=== PATIENT | female | born 1995 | race Caucasian/White ===

== ENCOUNTER 2017-06-11 16:52 | Emergency (ER) | payer OTHER ==
[~2017-06-11] VITALS: Ht 157.5 cm; Wt 78.0 kg
[2017-06-11 17:06] VITALS: Ht 157.5 cm; Wt 78.0 kg
[2017-06-11 18:04] LABS: CARBON DIOXIDE 26.7 mmol/L (21-32); CHLORIDE SERUM 106 mmol/L (98-107); CREATININE SERUM 0.6 mg/dL (0.6-1.0); GFR1 > 60 mL/min; GLUCOSE SERUM 86 mg/dL (74-106); POTASSIUM SERUM 3.9 mmol/L (3.5-5.1); SODIUM SERUM 138 mmol/L (136-145)
[2017-06-11 18:07] LABS: BASOPHIL % 0.3 % (0-2); PLATELET COUNT 322 x10^3mcL (130-400)
[2017-06-11 18:08] LABS: RED CELL DISTRIBUTION WIDTH 15.3 % (11.5-14.5)
[2017-06-11 18:09] LABS: ALBUMIN 3.6 g/dL (3.4-5.0); ALKALINE PHOSPHATASE 77 U/L (46-116); ALT/SGPT 37 U/L (14-59); AST/SGOT 15 U/L (15-37); BILIRUBIN TOTAL 0.5 mg/dL (0.20-1.00); LIPASE 96 IU/L (73-393); TOTAL PROTEIN, SERUM 6.9 g/dL (6.4-8.2)
[2017-06-11 18:14] LABS: UA SPECIFIC GRAVITY >=1.030 (1.005-1.035); microscopic required? YES; urine erythrocyte TRACE (NEGATIVE)
[2017-06-11 21:54] VITALS: BP 133/62
== END 2017-06-11 21:54 | disposition home or self-care (01) ==
LOC: ED 16:52
PROVIDERS: Emergency Medicine
DX: N39.0 Urinary tract infection, site not specified (principal)
CPT/HCPCS: 36415; J1885; Q0092

== ENCOUNTER 2017-06-12 03:36 | Emergency (ER) | payer OTHER ==
[~2017-06-12] VITALS: Ht 157.5 cm; Wt 78.5 kg
[2017-06-12 03:40] VITALS: Ht 157.5 cm; Wt 78.5 kg
[2017-06-12 05:26] VITALS: BP 118/80
== END 2017-06-12 05:26 | disposition home or self-care (01) ==
LOC: ED 03:36
DX: N83.202 Unspecified ovarian cyst, left side (principal); M54.9 Dorsalgia, unspecified; R11.10 Vomiting, unspecified; R51 Headache
CPT/HCPCS: Q0162